=== PATIENT | female | born 1965 ===

== ENCOUNTER 2023-05-16 16:04 | Emergency (ER) | payer MEDICAID, SELFPAY ==
[2023-05-16 16:08] VITALS: BP 115/71; PULSE 99; RESP 17; TEMP 36.6; O2SAT 98; BMI 22.3
[2023-05-16 17:35] LABS: Basophils % 0.6 %; Eosinophils # 0.1 10^3/uL (0.0-0.8); Eosinophils % 2.2 %; Hematocrit 45.8 % (36-47); Lymphocytes # 1.7 10^3/uL (0.8-4.8); Mean Corpuscular HGB Conc 33.6 g/dL (30-55); Mean Corpuscular Hemoglobin 31.5 pg (27-33); Mean Corpuscular Volume 93.7 fl (85-98); Monocytes # 0.4 10^3/uL (0.2-0.9); Monocytes % 7.6 %; Neutrophils # 3.17 10^3/uL (1.8-7.7); Neutrophils % 58.4 %; Nucleated Red Blood Cells % 0 %; Platelet Count 354 10^3/cmm (157-399); Red Blood Count 4.89 10^6/uL (3.85-5.65); Red Cell Distribution Width 12.6 % (12.1-15.1); White Blood Count 5.42 10^3/uL (3.29-11.43)
--- NOTE | 2023-05-16 17:42 | ED_ITS ---
HPI - Abdominal Pain General: Chief Complaint: Abdominal Pain Stated Complaint: abd pain Time Seen by Provider: 05/16/23 17:41 History of Present Illness: 57-year-old female comes in today with abdominal pain after eating. Patient has a history of abnormal liver enzymes. Patient reports over the last 2 to 3 weeks she has lost about 20 pounds due to poor oral intake. Patient's only been able to tolerate Ensure shakes. Patient states every time she eats she has severe abdominal discomfort and reflux. Patient does report some constipation. Patient denies any vomiting. Patient had an episode last night where she was concerned but was able to get control of it after drinking water and resting. Pain is exacerbated by eating. Pain is improved by drinking water. Patient t akes no routine medications. Patient appears nontoxic. Patient appears no pain at rest. Associated Symptoms: Reports constipation and nausea; Denies diarrhea, fever(s) and vomiting Review of Systems General: Reports: 10 or more systems reviewed and unremarkable except in HPI and below Const: Denies: fever(s) Card: Denies: chest pain Resp: Denies: dyspnea GI: Reports: abdominal pain, nausea and constipation; Denies: vomiting or diarrhea Physical Exam Const: COMMON NORMALS: alert HENMT: COMMON NORMALS: normocephalic HEAD & SCALP: normocephalic Neck/C-Spine: COMMON NORMALS: full ROM Resp: COMMON NORMALS: normal respiratory effort and clear to auscultation bilaterally AUSCULTATION: clear to auscultation bilaterally Cardio: COMMON NORMALS: regular rate and regular rhythm RATE: regular rate RHYTHM: regular rhythm GI: COMMON NORMALS: Soft to palpation PALPATION: Yes Soft to palpation and No Tenderness to palpation present (GI) : COMMON NORMALS: Yes no CVA tenderness BLADDER/KIDNEY EXAM: Yes no CVA tenderness Back/Pelvis: COMMON NORMALS: no CVA tenderness Extremity: COMMON NORMALS: normal to inspection Neuro: SENSORIUM/ORIENTATION: Yes alert Skin: COMMON NORMALS: turgor normal GENERAL SKIN EXAM: turgor normal Course Vital Signs: Vital signs: Vital Signs Temperature 97.9 F 05/16/23 16:08 Pulse Rate 68 05/16/23 20:11 Respiratory Rate 16 05/16/23 20:11 Blood Pressure 111/77 05/16/23 20:11 Pulse Oximetry 98 05/16/23 20:11 Oxygen Delivery Me thod Room Air 05/16/23 18:00 MDM - Abdominal Pain Medical Decision Making 57-year-old female comes in today for complaints of epigastric abdominal pain radiating to the right. Patient is reports symptoms for over 1 year. Patient has had significant weight loss from 149 pounds to 120 pounds over the last vyrose h. Patient has a history of abnormal liver enzymes. Patient has had no abdominal surgeries. Patient appears nontoxic. Patient appears in no pain at rest. Patient describes an event last night where she after eating had severe abdominal discomfort and pain in the feeling of impending doom. 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 Patient denies any routine medications. Respirations are even lungs are clear to auscultation. Abdomen soft with no tenderness on palpation. Differential diagnosis includes gastritis, peptic ulcer disease, perforation of viscus organ, abscess, gallbladder disease, pancreatitis, carcinoma. CBC CMP and urinalysis were unremarkable. EKG showed a normal sinus rhythm. CT of the abdomen pelvis was performed due to patient's severe pain and weight loss that showed no significant abnormalities. At this time I will treat patient for gastritis as patient describes severe pain after eating which may be a indicator of such illness. We will start on pantoprazole 40 mg daily for the next month. Patient was recommended continue with follow-up appointment with primary care as directed. Patient reported understanding agreed to plan and need for follow-up or return to the ER. Lab Data 05/16/23 17:20 05/16/23 17:20 Labs/Radiology: Radiology Impressions Abdomen/Pelvis CT 05/16/23 17:55 IMPRESSION: 1. Fluid within the small bowel without evidence of bowel wall thickening. This may reflect viral gastroenteritis in the appropriate clinical situation. 2. Incidental/nonacute findings are listed in the report. Laboratory Results WBC 5.42 10^3/uL (3.29-11.43) 05/16/23 17:20 RBC 4.89 10^6/uL (3.85-5.65) 05/16/23 17:20 Hgb 15.40 g/dL (11.27-16.99) 05/16/23 17:20 Hct 45.8 % (36-47) 05/16/23 17:20 MCV 93.7 fl (85-98) 10/17/23 17:20 MCH 31.5 pg (27-33) 05/16/23 17:20 MCHC 33.6 g/dL (30-55) 05/16/23 17:20 RDW 12.6 % (12.1-15.1) 05/16/23 17:20 Plt Count 354 10^3/cmm (157-399) 05/16/23 17:20 MPV 10.0 fL (7.4-10.4) 05/16/23 17:20 Neut % (Auto) 58.4 % 05/16/23 17:20 Lymph % (Auto) 31.0 % 05/16/23 17:20 [place] % (Auto) 7.6 % 05/16/23 17:20 Eos % (Auto) 2.2 % 05/16/23 17:20 Baso % (Auto) 0.6 % 05/16/23 17:20 Neut # (Auto) 3.17 10^3/uL (1.8-7.7) 05/16/23 17:20 Lymph # (Auto) 1.7 10^3/uL (0.8-4.8) 05/16/23 17:20 [place] # (Auto) 0.4 10^3/uL (0.2-0.9) 05/16/23 17:20 Eos # (Auto) 0.1 10^3/uL (0.0-0.8) 05/16/23 17:20 Baso # (Auto) 0.0 10^3/uL (0.0-0.1) 05/16/23 17:20 Nucleated RBC % (auto) 0 % 05/16/23 17:20 Nucleated RBCs # 0.0 /100WBC 05/16/23 17:20 Sodium 143 mmol/L (136-145) 05/16/23 17:20 Potassium 4.4 mmol/L (3.5-5.1) 05/16/23 17:20 Chloride 103 mmol/L (98-107) 05/16/23 17:20 Carbon Dioxide 28 mmol/L (22-29) 05/16/23 17:20 Anion Gap 16.4 (5-19) 05/16/23 17:20 BUN 13 mg/dL (6-20) 05/16/23 17:20 Creatinine 0.7 mg/dL (0.5-0.9) 05/16/23 17:20 GFR Calculation 86.6 mL/min (90-130) L 05/16/23 17:20 Glucose 87 mg/dL (65-115) 05/16/23 17:20 Calculated Osmolality 295 mOsm/kg (285-295) 05/16/23 17:20 Calcium 10.1 mg/dL (8.5-10.5) 05/16/23 17:20 Total Bilirubin 0.3 mg/dL (0.15-1.2) 05/16/23 17:20 AST 20 U/L (0-32) 05/16/23 17:20 ALT 12 U/L (0-33) 05/16/23 17:20 Alkaline Phosphatase 89 U/L (35-105) 05/16/23 17:20 Total Protein 8.1 g/dL (6.6-8.7) 05/16/23 17:20 Albumin 4.8 g/dL (3.5-5.2) 05/16/23 17:20 Globulin 3.3 g/dL (1.3-4.6) 05/16/23 17:20 Lipase 57 U/L (13-60) 05/16/23 17:20 All radiology interpretation(s) finalized by discharge EKG Data EKG 1: EKG interpretation date: 05/16/23 EKG interpretation time: 18:25 Prior EKG tracings: not available for review Interpretation: EKG shows a sinus rhythm with a regular rate at [address] elevation or ectopy is noted. No prior exam was available for comparison. No artifact was present on EKG. Computer generated interpretation: Sinus rhythm, low QRS voltage in precordial leads, borderline EKG, unconfirmed report. Discharge Plan Discharge Patient Disposition: Home Clinical Impression: Gastritis Qualifiers: Gastritis type: unspecified gastritis Chronicity: unspecified Gastritis ble eding: without bleeding Qualified Code(s): K29.70 - Gastritis, unspecified, without bleeding Condition: Stable Prescriptions: New pantoprazole 40 mg tablet,delayed release (DR/EC) 40 mg PO DAILY Qty: 30 0RF Discharge Orders: Discharge ED (Routine); Ordered 05/16/23 Ordered By: Florencio Enciso Referrals: Ed Pearce MD [Primary Care Provider] - Discharge Diet: Advance as tolerated Discharge Activity: Increase activity as tolerated Patient Instructions: Gastritis (ED) Activity Restrictions/Additional Instructions: Take pantoprazole 40 mg 1 capsule 30 minutes prior to your first meal of the day. Start with a liquid diet and then increase as tolerated over the next 3 to 5 days. Follow-up with primary care office for further evaluation and treatment. You may need to have further evaluation with endoscopy to visualize your stomach to rule out concerns of inflammation of the esophagus and an abdominal ulcer. Return to ER for worsening symptoms such as high fever greater than 100.4 ?F or 40 ?C, blood in vomit or stool, or new concerns. 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
[2023-05-16 17:51] LABS: Alanine Aminotransferase 12 U/L (0-33); Albumin Level 4.8 g/dL (3.5-5.2); Alkaline Phosphatase 89 U/L (35-105); Anion Gap 16.4 (5-19); Aspartate Amino Transferase 20 U/L (0-32); Blood Urea Nitrogen 13 mg/dL (6-20); Calcium 10.1 mg/dL (8.5-10.5); Carbon Dioxide 28 mmol/L (22-29); Chloride 103 mmol/L (98-107); Globulin 3.3 g/dL (1.3-4.6); Glomerular Filtration Rate 86.6 mL/min (90-130); Glucose 87 mg/dL (65-115); Lipase 57 U/L (13-60); Osmolality Calculated 295 mOsm/kg (285-295); Potassium 4.4 mmol/L (3.5-5.1); Sodium 143 mmol/L (136-145); Total Bilirubin 0.3 mg/dL (0.15-1.2); Total Protein 8.1 g/dL (6.6-8.7)
--- NOTE | 2023-05-16 17:55 | CTR_ITS ---
PROCEDURE INFORMATION: Exam: CT Abdomen And Pelvis With Contrast Exam date and time: 05/16/2023 7:30 PM Age: 57 years old Clinical indication: Abdominal pain; Localized; Right upper quadrant (ruq); Prior surgery; Surgery date: 6+ months; Surgery type: C-sections; Additional info: Epigastric to right upper abd pain TECHNIQUE: Imaging protocol: Computed tomography of the abdomen and pelvis with contrast. Sagittal and coronal reformatted images were created and reviewed. Radiation optimization: All CT scans at this facility use at least one of these dose optimization techniques: automated exposure control; mA and/or kV adjustment per patient size (includes targeted exams where dose is matched to clinical indication); or iterative reconstruction. Contrast material: OMNI 350; Contrast volume: 100 ml; Contrast route: INTRAVENOUS (IV); REPORTING DATA: Count of CT and Cardiac NM exams in prior 12 months: This patient has received 0 known CTs and 0 known cardiac nuclear medicine studies in the 12 months prior to the current study. COMPARISON: No relevant prior studies available. RADIATION DOSE METRICS: Total DLP (mGy-cm): 364 FINDINGS: Lungs: Visualized lungs are clear. Pleural spaces: No pleural effusion. Heart: Visualized portions of the heart are unremarkable. Liver: 1.6 x 1.4 cm hyperenhancing focus in the right lobe of the liver (series 3, image 32). Gallbladder and bile ducts: The gallbladder is unremarkable. No biliary ductal dilatation. Pancreas: The pancreas is unremarkable. No pancreatic ductal dilatation. Spleen: The spleen is unremarkable. Adrenal glands: The right and left adrenal glands are unremarkable. Kidneys and ureters: The right and left kidneys are unremarkable. The right and left ureters are unremarkable. Stomach and bowel: Increased fecal content in the colon. Fluid within the small bowel without evidence of bowel wall thickening. Appendix: The appendix is visualized and is unremarkable. No findings to suggest acute appendicitis. Intraperitoneal space: No free intraperitoneal air. No ascites. No loculated fluid collections to suggest an abscess. Vasculature: No evidence for aortic aneurysm or aortic dissection. Hepatic veins, portal veins, splenic vein, and SMV are patent. Lymph nodes: No lymphadenopathy. Urinary bladder: The bladder is unremarkable for the degree of distension. Reproductive: 1.5 x 1.3 cm leiomyoma in the uterine fundus (series 3, image 73). Multiple subcentimeter follicles in both right and left ovaries. Bones/joints: Mild degenerative changes in the visualized spine. Limbus vertebra at L2 and L3. Soft tissues: Small fat-containing umbilical hernia. No evidence for strangulation. No acute abnormality in the extra-abdominal soft tissues. Left gluteal subcutaneous calcified injection granulomas. CT/CT abdomen pelvis w con* [id number] IMPRESSION: 1. Fluid within the small bowel without evidence of bowel wall thickening. This may reflect viral gastroenteritis in the appropriate clinical situation. 2. Incidental/nonacute findings are listed in the report.
--- NOTE | 2023-05-16 17:59 | ECG_ITS ---
[facility] Test Date: 2023-05-16 Pat Name: Dinora Hill Department: Room: Gender: Female Call Or Contact Centre Coach: : 1965 Requested By: Florencio Bowers Order Number: [id number] Estephania MD: Robyn Mckeon M.D. Measurements Intervals [place] Rate: 71 P: 62 HI: 158 QRS: 46 QRSD: 85 T: 51 QT: 362 QTc: 393 Interpretive Statements SINUS RHYTHM LOW QRS VOLTAGE IN PRECORDIAL LEADS [QRS DEFLECTION < 1.0 mV IN CHEST LEADS] No previous ECG available for comparison Electronically Signed On 05-16-2023 21:57:17 CDT by Robyn Mckeon M.D. [id number]
[2023-05-16 18:00] VITALS: BP 110/83; PULSE 75; O2SAT 97
[2023-05-16 19:05] VITALS: PULSE 80; RESP 16
[2023-05-16] MEDS: iohexol 350 mg/mL 500 mL Btl (per mL) IV (19:20)
[2023-05-16 19:59] VITALS: BP 122/81; PULSE 72; RESP 16; O2SAT 100
[2023-05-16 20:11] VITALS: BP 111/77; PULSE 68; RESP 16; O2SAT 98
[2023-05-16] MEDS: pantoprazole DR 40 mg Tablet PO (20:42)
[2023-05-16 20:49] VITALS: BP 111/77; PULSE 68; RESP 16; TEMP 36.6; O2SAT 98
== END 2023-05-16 20:50 | disposition home or self-care (01) ==
PROVIDERS: Emergency Provider Nurse Practitioner Family; PCP Family Medicine
DX: K29.70 Gastritis, unspecified, without bleeding (principal)
CPT/HCPCS: 36415; 74177; 80053; 83690; 85025; 93005; 99285; Q9967